=== PATIENT | female | born 1990 | race Two or more races ===

== ENCOUNTER 2018-12-08 14:58 | Emergency (ER) | payer BC, MEDICAID ==
[~2018-12-08] VITALS: Ht 165.1 cm; Wt 80.0 kg
[2018-12-08 15:37] VITALS: BP 101/52
== END 2018-12-08 17:35 | disposition home or self-care (01) ==
LOC: ER 14:58
DX: O99.713 Diseases of the skin and subcutaneous tissue complicating pregnancy, third trimester (principal); S80.862A Insect bite (nonvenomous), left lower leg, initial encounter; S80.861A Insect bite (nonvenomous), right lower leg, initial encounter; Z3A.33 33 weeks gestation of pregnancy; W57.XXXA Bitten or stung by nonvenomous insect and other nonvenomous arthropods, initial encounter; Y93.89 Activity, other specified; Y92.89 Other specified places as the place of occurrence of the external cause; Y99.8 Other external cause status
CPT/HCPCS: 99281